=== PATIENT | female | born 1965 | race Caucasian/White ===

== ENCOUNTER → 2024-04-20 15:04 | Outpatient (REF) | payer BC, SELFPAY | LOC: HWWDC 15:04 | PROVIDERS: ATTENDING PHYSICIAN Obstetrics & Gynecology; FAMILY PHYSICIAN Family Medicine | DX: Z12.31 Encounter for screening mammogram for malignant neoplasm of breast (principal) | CPT/HCPCS: 77063; 77067 ==

== ENCOUNTER → 2024-10-11 10:21 | Outpatient (REF) | payer BC, SELFPAY | LOC: WDC 10:21 | PROVIDERS: ATTENDING PHYSICIAN Nurse Practitioner Family; FAMILY PHYSICIAN Internal Medicine | DX: N63.20 Unspecified lump in the left breast, unspecified quadrant (principal) | CPT/HCPCS: 76642; 77061; 77065 ==

== ENCOUNTER → 2025-03-18 10:45 | Outpatient (REF) | payer BC, SELFPAY | LOC: REG 10:45 | PROVIDERS: ATTENDING PHYSICIAN Internal Medicine | DX: M54.50 Low back pain, unspecified (principal) | CPT/HCPCS: 72110 ==

== ENCOUNTER 2025-03-22 13:50 | Outpatient (RCR) | payer BC, SELFPAY | END 2025-03-22 23:59 | disposition home or self-care (01) | LOC: RPT 13:50 | PROVIDERS: ATTENDING PHYSICIAN Internal Medicine | DX: M54.51 Vertebrogenic low back pain (principal); Z73.6 Limitation of activities due to disability; M62.81 Muscle weakness (generalized) | CPT/HCPCS: 97110; 97162 ==

== ENCOUNTER 2025-04-18 06:01 | Outpatient (RCR) | payer BC, SELFPAY | END 2025-04-18 23:59 | disposition home or self-care (01) | LOC: RPT 06:01 | PROVIDERS: ATTENDING PHYSICIAN Internal Medicine | DX: M54.51 Vertebrogenic low back pain (principal); Z73.6 Limitation of activities due to disability; M62.81 Muscle weakness (generalized); Z91.81 History of falling | CPT/HCPCS: 97010; 97110; 97140 ==

== ENCOUNTER → 2025-05-06 09:32 | Outpatient (REF) | payer BC, SELFPAY ==
[2025-05-06 10:18] LABS: Hematocrit 43.6 % (37.0-47.0); Hemoglobin 14.7 g/dL (12.0-16.0); Mean Corp Hgb Conc. 33.7 g/dL (33.0-37.0); Mean Corpuscular Volume 92.0 fL (81.0-99.0); Nucleated Red Blood Cells % 0 %; Platelet Count 259 10^3/uL (130-400); Red Cell Dist. Width 12.2 % (11.5-14.5)
[2025-05-06 11:17] LABS: ALT (SGPT) 21 U/L (0-35); AST (SGOT) 25 U/L (14-36); Albumin 4.4 g/dl (3.5-5.0); Alkaline Phosphatase 53 U/L (38-126); Blood Urea Nitrogen 16 mg/dl (7-17); Calcium 9.5 mg/dl (8.4-10.2); Carbon Dioxide 31 mmol/L (22-30); Chloride 105 mmol/L (98-107); Glucose 93 mg/dl (70-99); HDL Cholesterol 75 mg/dl; LDL Cholesterol, Calculated 139 mg/dl; Potassium 4.5 mmol/L (3.5-5.1); Sodium 141 mmol/L (135-145); Total Protein 7.1 g/dl (6.3-8.2); Very Low Density Lipoprotein 17 mg/dl (0-30); eGFR > 60.00
== END ==
LOC: REG 09:32
PROVIDERS: ATTENDING PHYSICIAN Internal Medicine
DX: Z00.00 Encounter for general adult medical examination without abnormal findings (principal)
CPT/HCPCS: 36415; 80053; 80061; 84443; 85025

== ENCOUNTER → 2025-05-10 14:41 | Outpatient (REF) | payer BC, SELFPAY | LOC: WDC 14:41 | PROVIDERS: ATTENDING PHYSICIAN Internal Medicine | DX: Z12.31 Encounter for screening mammogram for malignant neoplasm of breast (principal); M81.0 Age-related osteoporosis without current pathological fracture | CPT/HCPCS: 77063; 77067; 77080 ==

== ENCOUNTER 2025-06-07 06:24 | Day surgery (SDC) | payer BC, SELFPAY | END 2025-06-07 08:45 | disposition home or self-care (01) | LOC: GI 06:24 | PROVIDERS: ATTENDING PHYSICIAN Internal Medicine Gastroenterology | DX: Z12.11 Encounter for screening for malignant neoplasm of colon (principal); Z80.0 Family history of malignant neoplasm of digestive organs; K64.9 Unspecified hemorrhoids; D12.0 Benign neoplasm of cecum | CPT/HCPCS: 45385; 88305 ==